=== PATIENT | male | born 2000 | race Caucasian/White ===

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

== ENCOUNTER 2019-03-12 19:17 | Emergency (ER) | payer OTHER ==
[2019-03-12 19:27] VITALS: BP 135/57; PULSE 65; RESP 20; TEMP 97.8
[2019-03-12] MEDS ORDERED: diphenhydrAMINE 50 MG CAP PO STA (19:47)
[2019-03-12] MEDS ORDERED: METOCLOPRAMIDE 10 MG TAB PO STA (19:47)
[2019-03-12] MEDS ORDERED: KETOROLAC 30 MG/ML 1 ML VIAL IM STA (19:47)
--- NOTE | 2019-03-12 19:53 | ED ---
Headache HPI - General Chief Complaint: Headache Stated Complaint: Headache Time Seen by Provider: 03/12/19 19:31 Mode of arrival: ambulatory Limitations: no limitations - History of Present Illness Initial Comments: 19-year-old male patient presents to the emergency department today for evaluation of right-sided headache for the last 3 days. Patient states this started for him on Saturday. States it feels like it is deep inside his head. He denies taking any medication to try and relieve symptoms. Patient does admit to drinking alcohol last week on , he reports kissing a girl. States afterwards he developed some lip tingling which resolved on Saturday. Patient is concerned he may have contracted herpes. He denies any open wounds or lesions to the woman's face or genitalia. He denies any fever or chills. States that he has trouble remembering sometimes. Denies nausea or vomiting. Denies blurry or double vision. Denies numbness, tingling, or weakness to his extremities. he denies any head injury remote or recent. Denies history of headaches. Patient denies any recent rash, shortness breath, chest pain, abdominal pain, diarrhea, constipation, back pain, hematuria, dysuria, urinary urgency, urinary frequency, or any other complaints. - Related Data Home Medications Medication Instructions Recorded Confirmed Dicyclomine [Bentyl] 20 mg PO QID 10/03/17 10/07/17 Levothyroxine Sodium [Synthroid] 50 mcg PO DAILY 10/03/17 10/07/17 Allergies Allergy/AdvReac Type Severity Reaction Status Date / Time No Known Allergies Allergy Verified 03/12/19 19:27 Review of Systems ROS Statement: Those systems with pertinent positive or pertinent negative responses have been documented in the HPI. ROS Other: All systems not noted in ROS Statement are negative. Past Medical History Past Medical History: Thyroid Disorder Additional Past Medical History / Comment(s): Abd. pain; constipation History of Any Multi-Drug Resistant Organisms: None Reported Past Surgical History: No Surgical Hx Reported Additional Past Anesthesia/Blood Transfusion Reaction / Comment(s): no previous anesthesia Past Psychological History: No Psychological Hx Reported Smoking Status: Never smoker Past Alcohol Use History: None Reported Past Drug Use History: None Reported - Past Family History Mother Family Medical History: No Reported History General Exam Limitations: no limitations General appearance: alert, in no apparent distress, other (this is a well- developed, well-nourished adult male patient in no acute distress) Head exam: Present: atraumatic, normocephalic, normal inspection Eye exam: Present: normal appearance, PERRL, EOMI. Absent: scleral icterus, conjunctival injection, nystagmus, periorbital swelling ENT exam: Present: normal exam, normal oropharynx, mucous membranes moist, TM's normal bilaterally Neck exam: Present: normal inspection. Absent: tenderness, meningismus, lymphadenopathy Respiratory exam: Present: normal lung sounds bilaterally. Absent: respiratory distress, wheezes, rales, rhonchi, stridor Cardiovascular Exam: Present: regular rate, normal rhythm, normal heart sounds. Absent: systolic murmur, diastolic murmur, rubs, gallop, clicks GI/Abdominal exam: Present: soft, normal bowel sounds. Absent: distended, tenderness, guarding, rebound, rigid Neurological exam: Present: alert, oriented X3, CN II-XII intact Psychiatric exam: Present: normal affect, normal mood Skin exam: Present: warm, dry, intact, normal color. Absent: rash Course Vital Signs 03/12/19 19:23 Temperature 97.8 F Pulse Rate 65 Respiratory 20 Rate Blood Pressure 135/57 O2 Sat by Pulse 99 Oximetry Medical Decision Making - Medical Decision Making 19-year-old male patient presents to the emergency department today for evaluation of headache 3 days. Physical examination is unremarkable. He is neurologically intact with no focal deficits. He is answering all questions appropriately. There appears to be no memory deficit. Patient's chief concern was that he had contracted herpes from a young woman he had relations with on . He states that the female did not have any open wounds or lesions. He is unsure she has any history of STDs. Patient has no open wounds or lesions. Patient will be treated with medication and discharged home. He is instructed to follow up with his primary care physician for recheck in 1-2 days. Return parameters were discussed in detail. He verbalizes understanding and agrees with this plan Disposition Clinical Impression: Headache Disposition: HOME SELF-CARE Condition: Good Instructions (If sedation given, give patient instructions): Acute Headache (ED) Additional Instructions: Increase fluids. Rest. Follow-up with your primary care physician for recheck in 1-2 days. Return to the emergency department immediately for any new, worsening, or concerning symptoms. Is patient prescribed a controlled substance at d/c from ED?: No Referrals: Zuleima Stephens MD [Primary Care Provider] - 1-2 days Time of Disposition: 19:52
== END 2019-03-12 20:12 | disposition home or self-care (01) ==
LOC: EC 19:17
DX: R51 Headache (principal); E07.9 Disorder of thyroid, unspecified; Z79.890 Hormone replacement therapy
CPT/HCPCS: 96372; 99283

== ENCOUNTER → 2019-04-15 | Outpatient (CLI) | payer BC ==
--- NOTE | 2019-04-15 19:56 | MR ---
MR brain without contrast HISTORY: R 51, new onset headache No comparisons Multiplanar multisequence imaging through the brain There is no restricted diffusion. There is no hemorrhage or hydrocephalus. The orbits show symmetric appearance. The cerebellopontine angles, corpus callosum, pituitary, cervical medullary junction are unremarkable. There are normal vascular flow voids. Brain signal is maintained. Paranasal sinuses are remarkable for some minimal mucosal disease in the maxillary sinus right greater than left. IMPRESSION: Mild sinus disease.
== END | disposition home or self-care (01) ==
LOC: RADMRIMAIN 17:19
PROVIDERS: ATTEND Family Medicine
DX: R51 Headache (principal)
CPT/HCPCS: 70551

== ENCOUNTER → 2020-07-12 | Outpatient (CLI) | payer BC ==
--- NOTE | 2020-07-12 13:23 | CT ---
EXAMINATION TYPE: CT abdomen pelvis w con DATE OF EXAM: 07/12/2020 COMPARISON: CT abdomen October 09, 2018 HISTORY: Epigastric pain, bloating CT DLP: 1132 mGycm, Automated Exposure Control for Dose Reduction was Utilized. CONTRAST: CT scan of the abdomen and pelvis is performed with oral and with IV Contrast, patient injected with 100 mL of Isovue 300. FINDINGS: LUNG BASES: No significant abnormality is appreciated. LIVER/GB: No significant abnormality is appreciated. PANCREAS: No significant abnormality is seen. SPLEEN: No significant abnormality is seen. ADRENALS: No significant abnormality is seen. KIDNEYS: No significant abnormality is seen. BOWEL: Oral contrast does not reach level of the terminal ileum making evaluation of distal bowel sli ghtly suboptimal. Evaluation also slightly suboptimal as patient has little intra-abdominal fat. Mild to moderate wall thickening in the left colon is present extending into the sigmoid colon and rectum . No significant surrounding fat stranding. PROSTATE/SEMINAL VESICLES: No gross abnormality seen. LYMPH NODES: No greater than 1cm abdominal or pelvic lymph nodes are appreciated. OSSEOUS STRUCTURES: No significant abnormality is seen. OTHER: Some narrowing of the celiac artery at its origin seen best sagittal images 36 and 37 with dis coreen prominence. IMPRESSION: Possible mild uncomplicated acute distal colitis versus product of poor distention, corre late clinically. 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 Correlate clinically.
== END | disposition home or self-care (01) ==
LOC: RADCTMAIN 10:59
PROVIDERS: ATTEND Family Medicine
DX: R10.13 Epigastric pain (principal); R14.0 Abdominal distension (gaseous)
CPT/HCPCS: 74177; Q9967